=== PATIENT | male | born 1970 | race Caucasian/White ===

== ENCOUNTER 2019-05-28 02:46 | Emergency (ER) | payer SELFPAY ==
--- NOTE | 2019-05-28 03:11 | PDOC ---
Attending Attestation - Resident Resident Name: ArturoDiego - ED Attending Attestation I have performed the following: I have examined & evaluated the patient, The case was reviewed & discussed with the resident, I agree w/resident's findings & plan - HPI HPI: 05/28/19 06:35 see resident hpi - Physicial Exam PE: 05/28/19 06:36 agree with resident exam - Medical Decision Making 05/28/19 06:36 48-year-old male with right flank pain CT scan consistent with ureterolithiasis as well as renal mass Patient advised to stay for admission due to findings and persistent pain which she has refused, he will be signing out AMA and will follow up with his own physicians
[2019-05-28] MEDS ORDERED: morphine SULFATE 4 MG/ML VIAL IVPUSH ONE (03:22)
[2019-05-28] MEDS ORDERED: morphine CARPU-JECT 2 MG/1 ML DISP.SYRIN IVPUSH ONE ×2 (03:22)
[2019-05-28] MEDS ORDERED: ONDANSETRON 4 MG/2 ML VIAL IVPUSH ONE (03:24)
[2019-05-28] MEDS ORDERED: morphine SULFATE 4 MG/ML VIAL ONE (03:24)
[2019-05-28 04:16] VITALS: TEMP 97.9; BMI 31.0
[2019-05-28] MEDS ORDERED: morphine CARPU-JECT 4 MG/1 ML DISP.SYRIN IVPUSH ONE (04:21)
[2019-05-28 04:42] LABS: BASO % 0.4 % (0-2.0); EOS % 0.5 % (0-4.5); HEMATOCRIT 43.7 % (35.4-49); HEMOGLOBIN 14.9 GM/dL (11.7-16.9); LYMPH % 28.6 % (8-40); MCH 29.7 pg (25.7-33.7); MEAN CELL VOLUME 87.4 fl (80-96); MEAN PLT VOLUME 10.1 fl (7.5-11.1); NEUT % 63.5 % (42.8-82.8); PLATELET COUNT 188 K/MM3 (134-434); RDW 14.1 % (11.9-15.9); WHITE BLOOD COUNT 10.7 K/mm3 (4.0-10.0)
--- NOTE | 2019-05-28 04:51 | PDOC ---
History of Present Illness - General Chief Complaint: Pain, Acute Stated Complaint: FLANK PAIN Time Seen by Provider: 05/28/19 03:05 History Source: Packaging Supervisor Used Exam Limitations: Language Barrier (american) - History of Present Illness Initial Comments: 05/28/19 07:00 48M w/o known PMH presenting w/ 6 hours of sudden onset severe constant right flank pain radiating to right groin. Endorses n/v, dark urine. Denies dysuria. Denies f/c, cp, sob. Pt states he has had similar pain in the past and believes he may have had a kidney stone. NKDA Not currently on any medications Past History - Past Medical History Allergies/Adverse Reactions: Allergies Allergy/AdvReac Type Severity Reaction Status Date / Time No Known Allergies Allergy Verified 05/28/19 04:16 Home Medications: Ambulatory Orders Ondansetron [Zofran *Odt*] 4 mg GT TID PRN #15 tab.rapdis 05/28/19 Oxycodone HCl/Acetaminophen [Percocet 5-325 mg Tablet] 1 tab PO Q8H PRN #15 tablet MDD 3 05/28/19 COPD: No Kidney Stones: Yes Other medical history: Hernia - Immunization History Immunization Up to Date: Yes - Psycho Social/Smoking Cessation Hx Smoking History: Never smoked Information on smoking cessation initiated: No Hx Alcohol Use: No Drug/Substance Use Hx: No Review of Systems - Review of Systems Comments:: 05/28/19 07:00 ROS: CONSTITUTIONAL: Denies F / C HEENT: Denies headache, lightheadedness, dizziness, changes in vision / hearing , diplopia, blurry vision, sore throat, rhinorrhea RESP: Denies SOB, cough, orthopnea, BALL CARD: Denies chest pain, palpitations GI: Endorses N / V, flank pain. Denies diarrhea, other abdominal pain, bloody stool : Endorses dark urine. Denies dysuria, frequency SKIN: Denies rashes *Physical Exam - Vital Signs Last Vital Signs Temp Pulse Resp BP Pulse Ox 97.9 F 90 20 186/111 H 100 05/28/19 03:15 05/28/19 03:15 05/28/19 03:15 05/28/19 03:15 05/28/19 03:15 - Physical Exam 05/28/19 07:00 PE: GEN: Apparent distress, writhing in pain. AAOx3 HEENT: NC/AT, No facial asymmetry. Normal voice. Supple neck w/ FROM. CV: S1/S2, RRR, no m/r/g LUNG: CTAB, no wheezes, crackles, rales, rhonchi. GI: +TTP of the right flank and inguinal region. otherwise soft, +BS, no guarding, no rebound. No masses. EXTREMITIES: No obvious deformities of all extremities. SKIN: warm, dry, normal turgor PSYCH: normal mood and affect NEURO: Moving all extremities well. ED Treatment Course - LABORATORY CBC & Chemistry Diagram: 05/28/19 03:45 05/28/19 03:45 - RADIOLOGY Radiology Studies Ordered: Category Date Time Status ABDOMEN & PELVIS CT W/O CONTR [CT] Stat CT Scan 05/28/19 03:25 Taken CHEST X-RAY PORTABLE* [RAD] Stat Radiology 05/28/19 04:21 Ordered Medical Decision Making - Medical Decision Making 05/28/19 04:41 MDM: 48M presenting w/ sudden onset right flank pain. + n/v, dark urine. +TTP right flank. DDx - likely stone; possible but less likely appendicitis, colitis - cbc, cmp, lipase - ua - CT A/P - pain ctrl 05/28/19 04:20 Pt received 4mg morphine w/ slight decrease in pain level; additional 4mg morphine ordered CT IOC IMPRESSION: Mild right hydronephrosis and perinephric edema secondary to 3 mm distal UVJ stone. Additional tiny bilateral renal stones. 7.0 cm solid right renal mass is suspicious for renal cell carcinoma and requires further evaluation. - f/u labs - obtain EKG, CXR - Likely admit 05/28/19 04:45 Pt now sleeping in bed Holding additional 4mg morphine 05/28/19 05:16 Labs reviewed Cr 1.4; No other results to compare, possible NAI Discussed results w/ pt and recommendation for further workup of mass pain 08/17 now; will stop the 2nd dose of morphine for now admit to med/surg EKG 05/28/19 HR 83 WI 126 QRS 90 QTc 430 NSR 05/28/19 05:51 Pt wishes to leave Discussed at length, using [place] Citizen translation, the reasoning behind his desires and the risks of doing so: Patient requested to leave AMA. Patient is determined to be of sound mind and reasoning. The patient fully understands the care they are refusing and the risks associated with leaving before complete medical evaluation as explained by the medical team. The patient has been provided with a discharge summary, return precautions, and the reassurance that the Emergency Department will resume workup if the patient changes their mind. Immediate follow up has been urged - Will refer to [facility] for primary care and further workup. A copy of his CT report, lab results, and CT imaging will be provided. Urology referral provided. Discharge - Discharge Information Problems reviewed: Yes Clinical Impression/Diagnosis: Renal mass, Calculus of ureterovesical junction (UVJ) Condition: Stable Disposition: AGAINST MEDICAL ADVICE - Admission No - Additional Discharge Information Prescriptions: Ondansetron [Zofran *Odt*] 4 mg GT TID PRN #15 tab.rapdis PRN Reason: Nausea Oxycodone HCl/Acetaminophen [Percocet 5-325 mg Tablet] 1 tab PO Q8H PRN #15 tablet MDD 3 PRN Reason: Pain - Follow up/Referral Referrals: [facility] [place] [Provider Group] Edith Kumar MD [Staff Physician] - - Patient Discharge Instructions Patient Printed Discharge Instructions: DI for Kidney Stones Additional Instructions: YOU ARE LEAVING AGAINST MEDICAL ADVICE. THE RISKS OF DOING SO HAVE BEEN EXPLAINED TO YOU. YOU UNDERSTAND THAT THIS IS THE SECOND BEST ALTERNATIVE AND COMPLICATIONS MAY ARISE. IF YOU WISH TO RESUME EVALUATION AND TREATMENT OF YOUR CONDITION YOU ARE FREE TO COME BACK. WE ARE PROVIDING YOU A COPY OF YOUR IMAGES, CT REPORT, AND RESULTS. IF YOU DECIDE TO GO TO A DIFFERENT HOSPITAL; PLEASE PROVIDE THEM WITH THIS INFORMATION. WE ARE SENDING MEDICATIONS TO [address] PLEASE PICK IT UP AND TAKE PRESCRIBED. AVOID IBUPROFEN (E.G. MOTRIN, ALEEVE, ADVIL) DRINK PLENTY OF FLUIDS. FOLLOW UP WITH A PRIMARY CARE DOCTOR IN THE NEXT 1 DAY. WE ARE REFERRING YOU TO THE [facility] WHERE YOU CAN RECEIVE PRIMARY CARE. WE ARE REFERRING YOU TO A UROLOGIST; PLEASE CALL AND SCHEDULE AN APPOINTMENT. RETURN IMMEDIATELY TO THE NEAREST EMERGENCY DEPARTMENT IF YOU DEVELOP WORSENING , NEW, OR CONCERNING SYMPTOMS. ESTS DEJANDO CONTRA ASESORAMIENTO MDELIZABETH. LOS RIESGOS DE HACERLO SE FERNANDEZ EXPLICADO. USTED ENTIENDE QUE ESTA ES LA SEGUNDA MEJOR ALTERNATIVA Y PUEDEN PRODUCIR COMPLICACIONES. SI DESEA REANUDAR LA EVALUACIN Y EL TRATAMIENTO DE OCHOA CONDICIN, EST MOLLY DE VOLVER. LE ESTAMOS PROPORCIONANDO DHARMESH COPIA DE EN IMGENES, INFORME CT Y RESULTADOS. SI DECIDE IR A UN [facility]ITAL [facility]; POR FAVOR, PROPORCIONELOS CON ESTA INFORMACIN. ENVIAMOS MEDICAMENTOS A [facility] [address] [facility] [place]. POR FAVOR RECOGER Y RICO HANS PRESCRITO. EVITE EL IBUPROFENO (por ejemplo, MOTRIN, ALEEVE, ADVIL) BEBER MUCHO LQUIDO. SEGUIMIENTO CON UN MDICO DE ATENCIN PRIMARIA EN EL SIGUIENTE 1 DA. LE REFERIMOS AL CENTRO HANNAH CLEMENTE DONDE PUEDE RECIBIR ATENCIN PRIMARIA. Te estamos refiriendo a un urlogo; POR FAVOR LLAME Y PROGRAME DHARMESH SARAH. REGRESE INMEDIATAMENTE AL DEPARTAMENTO DE EMERGENCIA MS CERCANO SI DESARROLLA SNTOMAS ADOLESCENTES, NUEVOS O RELACIONADOS. Print Language: INDONESIAN - Post Discharge Activity
[2019-05-28 05:01] LABS: BILIRUBIN,TOTAL 0.4 mg/dL (0.2-1); CREATININE 1.4 mg/dL (0.55-1.3); POTASSIUM 3.7 mmol/L (3.5-5.1); TOT PROT 7.9 g/dl (6.4-8.2)
--- NOTE | 2019-05-28 05:32 | PN ---
Teaching Attending Note Name of Resident: Tierra Kiran ATTENDING PHYSICIAN STATEMENT I saw and evaluated the patient. I reviewed the resident's note and discussed the case with the resident. I agree with the resident's findings and plan as documented. SUBJECTIVE: Patient is a 48 year old man with PMH of HTN who presents with 6 hours of sudden onset severe and constant right flank pain radiating to right groin. Has associated nausea, vomiting, and dark urine. Denies dysuria, fever, chills, chest pain, SOB, diarrhea, headache or constipation. Patient states he has had similar pain in the past and believes he may have had a kidney stone. No recent travels or sick contacts. Denies tobacco, alcohol or illicit drug use. OBJECTIVE: Alert Vital Signs Period Temp Pulse Resp BP Sys/Elizalde Pulse Ox Last 24 Hr 97.9 F 90 20 186/111 100 HEENT: No Jaundice, eye redness or discharge, PERRLA, EOMI. Normocephalic, atraumatic. External ears are normal and hearing is grossly intact. No nasal discharge. Neck: Supple, nontender. No palpable adenopathy or thyromegaly. No JVD Chest: Good effort. Clear to auscultation and percussion. Heart: Regular. No S3, rub or murmur Abdomen: Not distended, soft, nontender and no HSM. No rebound or guarding. Normal bowel sounds. Ext: Peripheral pulses intact. No leg edema. Skin: Warm and dry. No petechiae, rash or ecchymosis. Neuro: Alert. Oriented x3. CN 2-12 grossly intact. Sensation grossly intact in all four extremities and DTR are symmetric. Psych: Appropriate mood and affect. Good insight. Abnormal Lab Results 05/28/19 05/28/19 03:45 03:45 WBC 10.7 H Creatinine 1.4 H Random Glucose 133 H ASSESSMENT AND PLAN: 1. Kidney mass/UVJ stone - CT scan of abdomen/pelvis with out contrast showed mild right hydronephrosis, perinephric edema and a 3 mm distal UVJ stone as well as additional tiny bilateral renal stones; a 7.0 cm solid right renal mass suspicious for renal cell carcinoma was noted and further evaluation recommended. Urinalysis is pending. 2. Obesity Counseled on the risks associated with obesity. Will provide patient all the necessary assistance, counseling and positive reinforcement to facilitate weight loss. Consult automatic line set up mechanic. 3. Hypertension - .............Restart suitable outpatient antihypertensive drugs when clinically appropriate. Revise regimen to ensure [id number] excellent BP control and consumer credit counselor patient on the injurious effects of uncontrolled hypertension. Nonpharmacologic measures to control hypertension like weight loss, salt restriction and exercise discussed. Importance of adherence to treatment regimen and attainment of normotension emphasized. 4. DVT prophylaxis - Heparin 5000u sq tid. 5. Advance directives - Full code
[2019-05-28 06:47] VITALS: BP 170/107; PULSE 86
--- NOTE | 2019-05-28 11:53 | EKG ---
Test Reason : Blood Pressure : / mmHG Vent. Rate : 083 BPM Atrial Rate : 083 BPM P-R Int : 126 ms QRS Dur : 090 ms QT Int : 366 ms P-R-T Axes : 059 023 094 degrees QTc Int : 430 ms NORMAL SINUS RHYTHM NONSPECIFIC T WAVE ABNORMALITY ABNORMAL ECG NO PREVIOUS ECGS AVAILABLE Confirmed by OSMAN MATOS, GEOFFREY ([id number]) on 05/28/2019 11:53:08 AM Referred By: Confirmed By:GEOFFREY BREWER MD
== END 2019-05-28 06:40 | disposition left against medical advice (07) ==
LOC: JER 02:46
PROC: 3E033GC Introduction of Other Therapeutic Substance into Peripheral Vein, Percutaneous Approach (ICD-10-PCS; principal; 2019-05-28)
PROC: 3E033NZ Introduction of Analgesics, Hypnotics, Sedatives into Peripheral Vein, Percutaneous Approach (ICD-10-PCS; 2019-05-28)
DX: N13.2 Hydronephrosis with renal and ureteral calculous obstruction (principal); N28.89 Other specified disorders of kidney and ureter; Z87.442 Personal history of urinary calculi
CPT/HCPCS: 36415; 74176-TC; 80053; 83690; 85025; 93005; 93010; 99283-25

== ENCOUNTER 2024-03-29 17:33 | Inpatient (IN) | payer SELFPAY ==
[2024-03-29 18:49] LABS: BASO % 0.3 % (0-2.0); EOS % 1.1 % (0-4.5); HEMATOCRIT 42.4 % (35.4-49); HEMOGLOBIN 14.2 GM/dL (11.7-16.9); LYMPH % 39.5 % (8-40); MCH 29.3 pg (25.7-33.7); MCHC 33.5 g/dl (32.0-35.9); MEAN CELL VOLUME 87.3 fl (80-96); MEAN PLT VOLUME 9.5 fl (7.5-11.1); NEUT % 51.1 % (42.8-82.8); PLATELET COUNT 167 10^3/uL (134-434); RBC 4.85 M/mm3 (4.00-5.60); RDW 14.1 % (11.9-15.9); WHITE BLOOD COUNT 6.2 K/mm3 (4.0-10.0)
[2024-03-29 18:53] LABS: POTASSIUM 3.9 mmol/L (3.5-5.1)
[2024-03-29 18:54] LABS: CALCIUM 9.1 mg/dL (8.5-10.1)
[2024-03-29 18:55] LABS: ALBUMIN 3.5 g/dl (3.4-5.0)
[2024-03-29 18:58] LABS: CREATININE 1.4 mg/dL (0.55-1.3)
[2024-03-29 19:00] LABS: INR 1.03 (0.83-1.09); PROTHROMBIN TIME (PATIENT) 11.6 SEC (9.7-13.0); TOT PROT 6.8 g/dl (6.4-8.2)
[2024-03-29 19:01] LABS: BILIRUBIN,TOTAL 0.4 mg/dL (0.2-1)
[2024-03-29 19:03] LABS: ACTIVATED PTT 30.3 SECONDS (25.2-36.5)
[2024-03-29 20:05] LABS: PH,URINE 5.5 (5.0-8.0); URINE APPEARANCE CLEAR; URINE BILIRUBIN NEGATIVE (NEGATIVE); URINE COLOR YELLOW; URINE GLUCOSE (UA) NEGATIVE (NEGATIVE); URINE KETONE NEGATIVE (NEGATIVE); URINE LEUK ESTERASE NEGATIVE (NEGATIVE); URINE NITRITE NEGATIVE (NEGATIVE); URINE PROTEIN NEGATIVE (NEGATIVE); URINE UROBILINOGEN 0.2 mg/dL (0.2-1.0)
[2024-03-29] MEDS ORDERED: HEPARIN NA (PORCINE) 5,000 UNITS/ML 1ML VIAL ONE (22:12)
[2024-03-29] MEDS: HEPARIN NA (PORCINE) 5,000 UNITS/ML 1ML VIAL SQ SCH (22:15)
[2024-03-30] MEDS ORDERED: LISINOPRIL 20 MG TABLET ONE (00:23)
[2024-03-30] MEDS ORDERED: ATORVASTATIN CA 40 MG TABLET (FP) ONE (00:24)
[2024-03-30] MEDS: LISINOPRIL 20 MG TABLET PO ONE (00:27)
[2024-03-30] MEDS: ATORVASTATIN CA 40 MG TABLET (FP) PO ONE (00:27)
[2024-03-30] MEDS ORDERED: HEPARIN NA (PORCINE) 5,000 UNITS/ML 1ML VIAL ONE (06:17)
[2024-03-30 06:57] LABS: HEMATOCRIT 42.3 % (35.4-49); HEMOGLOBIN 14.1 GM/dL (11.7-16.9); MCH 29.7 pg (25.7-33.7); MCHC 33.4 g/dl (32.0-35.9); MEAN CELL VOLUME 88.7 fl (80-96); MEAN PLT VOLUME 9.4 fl (7.5-11.1); PLATELET COUNT 161 10^3/uL (134-434); RBC 4.77 M/mm3 (4.00-5.60); RDW 13.6 % (11.9-15.9); WHITE BLOOD COUNT 6.2 K/mm3 (4.0-10.0)
[2024-03-30 07:15] LABS: ALBUMIN 3.5 g/dl (3.4-5.0); BLOOD UREA NITROGEN 16.2 mg/dL (7-18); CALCIUM 9.2 mg/dL (8.5-10.1); MAGNESIUM 2.2 mg/dL (1.8-2.4)
[2024-03-30 07:19] LABS: CREATININE 1.5 mg/dL (0.55-1.3); PHOSPHOROUS 3.8 mg/dL (2.5-4.9)
[2024-03-30 07:20] LABS: BILIRUBIN,TOTAL 0.7 mg/dL (0.2-1)
[2024-03-30] MEDS: HYDROCHLOROTHIAZIDE 12.5 MG CAPSULE (FP) PO SCH (10:38)
[2024-03-30] MEDS: ASPIRIN 81 MG CHEWABLE TABLETS PO SCH (14:27)
[2024-03-30] MEDS: ATORVASTATIN CA 40 MG TABLET (FP) PO SCH (21:35)
[2024-03-30] MEDS: LISINOPRIL 20 MG TABLET PO SCH (21:35)
[2024-03-31] MEDS ORDERED: hydrALAZINE HCL 20 MG/ML VIAL IM PRN (14:48)
[2024-03-31] MEDS: LABETALOL HCL 200 MG TABLET (FP) PO ONE (15:28)
[2024-03-31 16:34] VITALS: BMI 33.5
[2024-03-31] MEDS: LABETALOL HCL 100 MG TABLET (FP) PO SCH (21:39)
[2024-04-01] MEDS: CLOPIDOGREL BISULFATE 75 MG TABLET (FP) PO SCH (12:24)
[2024-04-01 14:56] VITALS: BP 136/86; PULSE 81; RESP 18; TEMP 98.2
== END 2024-04-01 18:24 | disposition home or self-care (01) | DRG 45 ==
LOC: JER 17:33 → JERBED 21:31 → J4W 03-30 10:27 → OBSVTOIN 03-30 12:06
PROVIDERS: ADMIT Internal Medicine; ATTEND Internal Medicine
DX: I63.81 Other cerebral infarction due to occlusion or stenosis of small artery (principal); E78.00 Pure hypercholesterolemia, unspecified; I10 Essential (primary) hypertension; I16.0 Hypertensive urgency; N28.89 Other specified disorders of kidney and ureter; I12.9 Hypertensive chronic kidney disease with stage 1 through stage 4 chronic kidney disease, or unspecified chronic kidney disease; N18.32 Chronic kidney disease, stage 3b; R20.2 Paresthesia of skin; E66.9 Obesity, unspecified; Z68.33 Body mass index [BMI] 33.0-33.9, adult
CPT/HCPCS: 0241U-QW; 36415; 70450-TC; 70496-TC; 70498-TC; 70551-TC; 76775-TC; 80053; 80061; 81003; 82550; 82553; 82962; 83036; 83735; 84100; 84484; 85025; 85027; 85610; 85730; 86780; 86850; 86900; 86901; 93005; 93010; 93306-TC; 93880-TC; 97116-GP; 97161-GP; 99285-25; G0378; J1644